=== PATIENT | male | born 1945 | race Caucasian/White ===

== ENCOUNTER 2020-10-09 21:43 | Emergency (ER) | payer MEDICARE, BC ==
[~2020-10-09] VITALS: Ht 182.9 cm; Wt 102.1 kg
[2020-10-09] MEDS ORDERED: BAYER CHEWABLE81 MG PO (22:00)
[2020-10-09] MEDS ORDERED: ALLEGRA ALLERG180 MG PO (22:00)
[2020-10-09] MEDS ORDERED: TOPROL XL25 MG PO (22:01)
[2020-10-09] MEDS ORDERED: COZAAR 25 MG TA25 M1 PO (22:01)
[2020-10-09] MEDS ORDERED: HYDROCHLOROTH12.5 M1 PO (22:02)
[2020-10-09] MEDS ORDERED: NORVASC 2.5 MG2.5 MG PO (22:02)
[2020-10-09 22:03] LABS: ABSOLUTE BASOPHILS 0.1 thou/uL (0.0-0.2); ABSOLUTE EOSINOPHILS 0.3 thou/uL (0.0-0.7); ABSOLUTE LYMPHOCYTES 1.7 thou/uL (0.8-5.3); ABSOLUTE MONOCYTES 0.6 thou/uL (0.0-1.2); ABSOLUTE NEUTROPHILS 3.9 thou/uL (1.6-8.1); BASOPHILS 0.9 %; EOSINOPHILS 4.4 %; LYMPHOCYTES 26.2 %; MCH 30.1 pg (26.0-34.0); MCHC 33.2 g/dL (28.0-37.0); MCV 90.7 fL (80.0-100.0); MONOCYTES 9.4 %; MPV 8.2 fl. (7.2-11.1); NUCLEATED RBCS 0 /100WBC; PLATELET COUNT* 199 thou/uL (150-400); POLYS 59.1 %; RDW-CV 14.5 % (10.5-14.5); WBC 6.7 thou/uL (4.0-11.0)
[2020-10-09] MEDS ORDERED: PROSCAR 5MG TABL5 M1 PO (22:03)
[2020-10-09] MEDS ORDERED: LEVO-T25 MCG PO (22:03)
[2020-10-09] MEDS ORDERED: LIPITOR40 MG PO (22:04)
[2020-10-09] MEDS ORDERED: FOLIC ACID1 MG PO (22:04)
[2020-10-09] MEDS ORDERED: OMEPRAZOLE 20 M20 M1 PO (22:04)
[2020-10-09] MEDS ORDERED: METFORMIN HCL500 M3 PO (22:05)
[2020-10-09 22:13] LABS: CALCIUM 9.1 mg/dL (8.5-10.1); CREATININE 1.7 mg/dL (0.6-1.3); POTASSIUM 3.4 mmol/L (3.5-5.1)
[2020-10-09 22:14] LABS: PROTIME 10.6 Seconds (9.20-11.50)
[2020-10-09 22:24] LABS: MAGNESIUM 1.9 mg/dL (1.8-2.4); TOTAL BILIRUBIN 1.4 mg/dL (<0.1-1.0); TOTAL PROTEIN 7.3 g/dL (6.4-8.2)
[2020-10-10 01:12] VITALS: BP 132/72
--- NOTE | 2020-10-10 10:52 | EKG ---
[place] [address] ELECTROCARDIOGRAM REPORT Name: ANETA OSULLIVAN Room: [facility]#: [id number] Admission: 10/09/20 Attend Phys: Discharge: 10/10/20 Date of : 41 Date of Service: 10/09/202146 Report #: [id number] THIS REPORT FOR: //name// [facility] ED Test Date: 2020-10-09 Test Time: 21:47:30 Pat Name: ANTEA OSULLIVAN Department: Room: Gender: Mail Superintendent: AT : 1945 Requested By: Becca Barfield Order Number: [id number] MD: Thierry Hebert Measurements Intervals [place] Rate: 71 P: 71 NM: 172 QRS: 62 QRSD: 109 T: 62 QT: 426 QTc: 463 Interpretive Statements Sinus rhythm Ventricular premature complex Consider anterior infarct No previous ECG available for comparison Electronically Signed On 10-10-2020 10:52:35 CDT by Thierry Hebert [email or web address] <ELECTRONICALLY SIGNED> By: Thierry Hebert MD, [facility] 10/10/20 1052 [id number] Thierry Hebert MD, [facility] /EPI
== END 2020-10-10 01:13 | disposition home or self-care (01) ==
LOC: M.ERS 21:43
PROVIDERS: Emergency Medicine
DX: R53.1 Weakness (principal); R42 Dizziness and giddiness; I10 Essential (primary) hypertension; E78.00 Pure hypercholesterolemia, unspecified; E11.9 Type 2 diabetes mellitus without complications; Z79.899 Other long term (current) drug therapy